=== PATIENT | male | born 1980 | race Caucasian/White ===

== ENCOUNTER 2024-11-30 08:40 | Emergency (ER) | payer MEDICAID ==
[~2024-11-30] VITALS: Ht 182.9 cm; Wt 72.7 kg
[2024-11-30 08:43] VITALS: BP 105/67; PULSE 77; RESP 18; O2SAT 100
--- NOTE | 2024-11-30 09:36 | Physician Documentation ---
History of Present Illness ~ Chief Complaint: Rash Stated Complaint: POISON OAK Time Seen by MD: 08:59 OK to notify your PCP?: Yes Source: patient, RN/MD, RN notes reviewed, old records Mode of Arrival: POV Exam Limitations: no limitations HPI 44 year old male seen in bed 18 presents to the emergency department for complaints of of a rash that presented a week ago. 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 He states that he is feeling really itchy on his entire body. He went to [facility] in [place] and was prescribed medication which he has been compliant with. Additionally he complains of a cut to his right foot. Patient denies any other associated symptoms at this time. Patient denies any other alleviating or exacerbating factors. Medication Reconciliation Allergies: Coded Allergies: Penicillins (Unverified Allergy, Unknown, 11/30/24) Scheduled Diphenhydramine Hcl (Benadryl), 25 MG PO TID Prednisone* (Prednisone*), 2 TAB PO DAILY Triamcinolone Acetonide 0.5% Crm* (Kenalog 0.5% Crm*), 1 APPLIC TOP Q12H Past Medical History Past Medical History: No Pertinent History Past Surgical History: no surgical history Smoking Status: Never smoker Alcohol Use: None Drug Use: none Review of Systems All Other Systems at this time: Reviewed and Negative ROS As stated above in the HPI, otherwise all systems are reviewed and negative. Physical Exam Vital Signs: RN Vital Signs have been reviewed: Yes, Temperature: 98.3, Source: Temporal, Heart Rate: 77, Respiratory Rate: 18, BP: 105/67, Pulse Oximetry: 100, Weight: 72.730 Oxygen Flow Rate: 0 Pulse Oximetry Reflects: adequate oxygenation Physical Exam General: The patient is well developed, well nourished, nontoxic appearing and is in no acute distress. Skin: Diffuse rash to entire body. Maculopapular rash with no vesicles. Otherwise, pink, warm and dry. HEENT: Head was normocephalic and atraumatic. Eyes - pupils equal, round, reactive to light and accommodation. Extraocular movements were intact. Conjunctivae were nonicteric. Ears - bilateral tympanic membranes were normal. The mouth and oropharynx were clear with moist mucous membranes. There were no pharyngeal exudates or erythema. Neck: Supple and nontender. There was no jugular venous distention, lymphadenopathy, thyromegaly or masses. Chest: Clear to auscultation bilaterally without wheezes, rales or rhonchi. No accessory muscle use. No dullness to percussion. Heart: Rate regular and rhythmic. S1, S2. No murmurs. Palpation of the chest wall was normal. No rubs or thrills. Abdomen: Soft, nontender and nondistended. Positive bowel sounds. No guarding or rebound. No hepatosplenomegaly or palpable masses. Extremities: No cyanosis, clubbing or edema. The patient moves all extremities. Pulses were equal and symmetric. Neurologic: Cranial nerves II-XII were intact. Sensation was intact to light touch throughout. Motor strength was 5/5 in all four extremities. Deep tendon reflexes were intact in both upper and lower extremities. Psychologic: The patient was oriented to person, place and time. The patient demonstrated appropriate judgement and insight. Progress Results/Orders Reviewed/noted all lab results: Yes Results/Orders Completed Orders - SHONDA ROBLEDO MD Triamcinolone Acet 40mg/Ml Inj (Kenalog- (11/30/24 09:45) Diphenhydramine Capsule (Benadryl Capsul (11/30/24 09:45) Triamcinolone Acet 0.1% Cream (Kenalog (11/30/24 09:47) Vital Signs 11/30/24 08:43 Temp 98.3 Pulse 77 Resp 18 B/P (MAP) 105/67 Pulse Ox 100 O2 Flow Rate 0 Re-Evaluation Re-Evaluation : Re-Evaluation: Improved Progress Patient was seen and examined. Patient is given reassurance. The patient was given steroids Benadryl and ointment. Patient was given reassurance. The patient will follow up with his physician as needed on outpatient basis. Patient was told about rebound infections specifically poison oak dermatitis. He is on doxycycline is wound does not look infected he has a secondary new cut on his toe currently on antibiotics for at least three more days. Patient was encouraged to keep his wounds clean. There was no repair. It is superficial. His rash is mostly on the core of his body diffuse throughout his body. Kenalog ointment was also given and Benadryl for itching. No signs of secondary infection at this time. Medical Decision Making Additional info obtained from: old records Differential Dx:Considerations: Include: Abscess, Atopic dermatitis, Candidiasis, Contact dermatitis, Drug reaction, Erythema multiforme, Erysipelas, Gangrene, Herpes zoster, Herpes simplex, Lymes disease, Molluscum contagiosum, Pediculosis, Pityriasis rosea, Psoriaisis, Rosacea, Scabies, Scarlet fever, Tinea, Urticaria, Varicella, Viral exanthema, Other Departure Time of Disposition: 09:43 Disposition: 01 HOME / SELF CARE / HOMELESS Impression: Primary Impression: Poison oak dermatitis Condition: Stable Discharge Instructions: Poison [place] Dermatitis, [id number] Referrals: NO PRIMARY CARE PROVIDER (PCP) Prescriptions Prednisone* (Prednisone*) 20 Mg Tablet 2 TAB PO DAILY for 10 Days, #21 TAB 1 Refill Prov: SHONDA ROBLEDO MD 11/30/24 Diphenhydramine Hcl (Benadryl) 25 Mg Capsule 25 MG PO TID, #30 CAP 1 Refill Prov: SHONDA ROBLEDO MD 11/30/24 Triamcinolone Acetonide 0.5% Crm* (Kenalog 0.5% Crm*) 15 Gm Tube 1 APPLIC TOP Q12H for 30 Days, #30 GM 2 Refills apply to affected area(s) Prov: SHONDA ROBLEDO MD 11/30/24 Education Educated: Patient Educated regarding: diagnosis, treatment, prognosis Signature Scribe Signature: Scribed for Shonda Robledo MD by Nandini Garcia . 11/30/24 09:43 Attestation: The note accurately reflects work and decisions made by me.Shonda Robledo MD 11/30/24 09:36 SHONDA ROBLEDO MD Nov 30, 2024 09:36 NANDINI LEZAMA Nov 30, 2024 09:44
[2024-11-30] MEDS ORDERED: TRIA15CR61 TOP (09:49)
[2024-11-30] MEDS ORDERED: PRED20TA PO (09:53)
[2024-11-30] MEDS ORDERED: DIPH-423 PO (09:53)
[2024-11-30] MEDS: triamcinolone acetonide 40mg/ml inj IS ONE (10:03)
[2024-11-30] MEDS ORDERED: ACET-2119 PO (10:11)
[2024-11-30 10:14] VITALS: TEMP 98.3
== END 2024-11-30 10:15 | disposition home or self-care (01) ==
LOC: ER 08:41
DX: L23.7 Allergic contact dermatitis due to plants, except food (principal); Z88.0 Allergy status to penicillin; Z79.899 Other long term (current) drug therapy
CPT/HCPCS: 99283; J3301; Q0163